=== PATIENT | female | born 1940 | race Caucasian/White ===

== ENCOUNTER → 2016-07-05 | Outpatient (CLI) | payer MEDICARE ==
[~2016-07-05] MED LIST: ANAS1TAB PO; ASCO500T12 PO; ASPI-496 PO; CALC500T47 PO; CHOL3000 PO; CYAN1TAB29 PO; LOSA50TA6 PO; MULT-257 PO; OMEG1CAP34 PO; RED600TA PO; UBID1CAP24 PO
== END | disposition home or self-care (01) ==
LOC: CFH 09:14
PROVIDERS: ATTEND Internal Medicine Hematology & Oncology
DX: Z13.820 Encounter for screening for osteoporosis (principal); C50.911 Malignant neoplasm of unspecified site of right female breast; M85.88 Other specified disorders of bone density and structure, other site
CPT/HCPCS: 77080

== ENCOUNTER → 2016-11-20 | Outpatient (CLI) | payer MEDICARE | END | disposition home or self-care (01) | LOC: PETCFH 07:13 | PROVIDERS: ATTEND Internal Medicine Hematology & Oncology | DX: C50.911 Malignant neoplasm of unspecified site of right female breast (principal) | CPT/HCPCS: 78306; A9503 ==

== ENCOUNTER → 2016-11-20 | Outpatient (CLI) | payer MEDICARE ==
[~2016-11-20] MED LIST changes: +OMNIPAQUE 350 MG/ML, 100ML BOTTLE ONE
== END | disposition home or self-care (01) ==
LOC: CFH 07:20
PROVIDERS: ATTEND Internal Medicine Hematology & Oncology
DX: C79.51 Secondary malignant neoplasm of bone (principal); C50.911 Malignant neoplasm of unspecified site of right female breast; K76.9 Liver disease, unspecified; K82.0 Obstruction of gallbladder; J98.4 Other disorders of lung
CPT/HCPCS: 71260; 74177; 82565; Q9967

== ENCOUNTER → 2017-03-24 | Outpatient (CLI) | payer MEDICARE ==
[~2017-03-24] MED LIST changes: -CALC500T47 PO; +CALC500T51 PO; -OMNIPAQUE 350 MG/ML, 100ML BOTTLE ONE; -UBID1CAP24 PO; +UBID1CAP43 PO
== END | disposition home or self-care (01) ==
LOC: PETCFH 10:28
PROVIDERS: ATTEND Internal Medicine Hematology & Oncology
DX: C78.7 Secondary malignant neoplasm of liver and intrahepatic bile duct (principal); C79.51 Secondary malignant neoplasm of bone; C50.911 Malignant neoplasm of unspecified site of right female breast; J90 Pleural effusion, not elsewhere classified; R91.8 Other nonspecific abnormal finding of lung field; I70.0 Atherosclerosis of aorta; K82.0 Obstruction of gallbladder
CPT/HCPCS: 71260; 74177; 78306; 82565; A9503; Q9967

== ENCOUNTER → 2017-03-26 | Outpatient (CLI) | payer MEDICARE | END | disposition home or self-care (01) | LOC: RAD 11:22 | PROVIDERS: ATTEND Internal Medicine Hematology & Oncology | DX: C50.911 Malignant neoplasm of unspecified site of right female breast (principal) | CPT/HCPCS: 93005 ==

== ENCOUNTER → 2017-06-10 | Outpatient (CLI) | payer MEDICARE | END | disposition home or self-care (01) | LOC: STAR 10:41 | PROVIDERS: ATTEND Internal Medicine Hematology & Oncology | DX: I44.4 Left anterior fascicular block (principal); I51.7 Cardiomegaly; C50.911 Malignant neoplasm of unspecified site of right female breast | CPT/HCPCS: 93005 ==

== ENCOUNTER → 2017-06-19 | Outpatient (CLI) | payer MEDICARE ==
[~2017-06-19] MED LIST changes: +OMNIPAQUE 350 MG/ML, 100ML BOTTLE ONE
== END | disposition home or self-care (01) ==
LOC: CFH 09:57
PROVIDERS: ATTEND Internal Medicine Hematology & Oncology
DX: C79.51 Secondary malignant neoplasm of bone (principal); C50.911 Malignant neoplasm of unspecified site of right female breast; J90 Pleural effusion, not elsewhere classified
CPT/HCPCS: 71260; 74177; 82565; Q9967

== ENCOUNTER → 2017-06-19 | Outpatient (CLI) | payer MEDICARE ==
[~2017-06-19] MED LIST changes: -OMNIPAQUE 350 MG/ML, 100ML BOTTLE ONE
== END | disposition home or self-care (01) ==
LOC: PETCFH 09:54
PROVIDERS: ATTEND Internal Medicine Hematology & Oncology
DX: C50.911 Malignant neoplasm of unspecified site of right female breast (principal)
CPT/HCPCS: 78306; A9503

== ENCOUNTER → 2017-08-07 | Outpatient (CLI) | payer MEDICARE | END | disposition home or self-care (01) | LOC: CLISVCS 12:26 | PROVIDERS: ATTEND Internal Medicine Hematology & Oncology | DX: I44.4 Left anterior fascicular block (principal); I45.10 Unspecified right bundle-branch block; I51.7 Cardiomegaly; C50.911 Malignant neoplasm of unspecified site of right female breast | CPT/HCPCS: 93005 ==

== ENCOUNTER → 2017-08-14 | Outpatient (CLI) | payer MEDICARE ==
[~2017-08-14] MED LIST changes: +GADOBUTROL 7.5 MMOL/7.5 ML VIAL ONE
== END | disposition home or self-care (01) ==
LOC: CFH 13:23
PROVIDERS: ATTEND Internal Medicine Hematology & Oncology
DX: G31.89 Other specified degenerative diseases of nervous system (principal); I67.82 Cerebral ischemia; R90.82 White matter disease, unspecified; C50.911 Malignant neoplasm of unspecified site of right female breast
CPT/HCPCS: 70553; A9585

== ENCOUNTER → 2017-09-17 | Outpatient (CLI) | payer MEDICARE ==
[~2017-09-17] MED LIST changes: -GADOBUTROL 7.5 MMOL/7.5 ML VIAL ONE; +OMNIPAQUE 350 MG/ML, 100ML BOTTLE ONE
== END | disposition home or self-care (01) ==
LOC: PETCFH 10:00
PROVIDERS: ATTEND Internal Medicine Hematology & Oncology
DX: C79.51 Secondary malignant neoplasm of bone (principal); J90 Pleural effusion, not elsewhere classified; C50.911 Malignant neoplasm of unspecified site of right female breast
CPT/HCPCS: 71260; 74177; 78306; 82565; A9503; Q9967

== ENCOUNTER → 2017-09-22 | Outpatient (CLI) | payer MEDICARE ==
[~2017-09-22] MED LIST changes: -OMNIPAQUE 350 MG/ML, 100ML BOTTLE ONE
== END | disposition home or self-care (01) ==
LOC: STAR 10:10
PROVIDERS: ATTEND Internal Medicine Hematology & Oncology
DX: I51.7 Cardiomegaly (principal); I45.10 Unspecified right bundle-branch block; C50.911 Malignant neoplasm of unspecified site of right female breast
CPT/HCPCS: 93005

== ENCOUNTER → 2017-11-21 | Outpatient (CLI) | payer MEDICARE ==
[~2017-11-21] MED LIST changes: +OMNIPAQUE 350 MG/ML, 100ML BOTTLE ONE
== END | disposition home or self-care (01) ==
LOC: RAD 08:48
PROVIDERS: ATTEND Internal Medicine Hematology & Oncology
DX: C79.51 Secondary malignant neoplasm of bone (principal); C50.911 Malignant neoplasm of unspecified site of right female breast; R91.8 Other nonspecific abnormal finding of lung field; J90 Pleural effusion, not elsewhere classified
CPT/HCPCS: 71260; 74177; 78306; A9503; Q9967

== ENCOUNTER → 2018-01-13 | Outpatient (CLI) | payer MEDICARE ==
[~2018-01-13] MED LIST changes: -LOSA50TA6 PO; +LOSA50TA7 PO; -OMNIPAQUE 350 MG/ML, 100ML BOTTLE ONE
== END | disposition home or self-care (01) ==
LOC: STAR 10:45
PROVIDERS: ATTEND Internal Medicine Hematology & Oncology
DX: Z01.818 Encounter for other preprocedural examination (principal); C50.911 Malignant neoplasm of unspecified site of right female breast; F17.210 Nicotine dependence, cigarettes, uncomplicated
CPT/HCPCS: 93005

== ENCOUNTER → 2018-01-28 | Outpatient (CLI) | payer MEDICARE ==
[~2018-01-28] MED LIST changes: +OMNIPAQUE 350 MG/ML, 100ML BOTTLE ONE
== END | disposition home or self-care (01) ==
LOC: RAD 10:52
PROVIDERS: ATTEND Internal Medicine Hematology & Oncology
DX: C79.51 Secondary malignant neoplasm of bone (principal); C78.7 Secondary malignant neoplasm of liver and intrahepatic bile duct; C50.911 Malignant neoplasm of unspecified site of right female breast; R91.8 Other nonspecific abnormal finding of lung field; J94.8 Other specified pleural conditions
CPT/HCPCS: 71260; 74177; Q9967

== ENCOUNTER → 2018-03-06 | Outpatient (CLI) | payer MEDICARE ==
[~2018-03-06] MED LIST changes: -OMNIPAQUE 350 MG/ML, 100ML BOTTLE ONE
== END | disposition home or self-care (01) ==
LOC: RAD 13:57
PROVIDERS: ATTEND Internal Medicine Hematology & Oncology
DX: I83.893 Varicose veins of bilateral lower extremities with other complications (principal)
CPT/HCPCS: 93970

== ENCOUNTER → 2018-04-23 | Outpatient (CLI) | payer MEDICARE ==
[~2018-04-23] MED LIST changes: +OMNIPAQUE 350 MG/ML, 100ML BOTTLE ONE
== END | disposition home or self-care (01) ==
LOC: RAD 08:00
PROVIDERS: ATTEND Internal Medicine Hematology & Oncology
DX: C78.7 Secondary malignant neoplasm of liver and intrahepatic bile duct (principal); C50.911 Malignant neoplasm of unspecified site of right female breast
CPT/HCPCS: 74177; Q9967

== ENCOUNTER → 2018-04-23 | Outpatient (CLI) | payer MEDICARE | END | disposition home or self-care (01) | LOC: RAD 13:29 | PROVIDERS: ATTEND Internal Medicine Hematology & Oncology | DX: C50.911 Malignant neoplasm of unspecified site of right female breast (principal); J90 Pleural effusion, not elsewhere classified; R06.02 Shortness of breath; R00.0 Tachycardia, unspecified | CPT/HCPCS: 71275; Q9967 ==

== ENCOUNTER 2018-06-09 08:19 | Day surgery (SDC) | payer MEDICARE ==
[~2018-06-09] VITALS: Ht 167.6 cm; Wt 49.0 kg
[~2018-06-09 08:19] MED LIST changes: +LOSA50TA14 PO; -LOSA50TA7 PO; -OMNIPAQUE 350 MG/ML, 100ML BOTTLE ONE
[2018-06-09] MEDS ORDERED: GEMZAR IV (08:58)
[2018-06-09] MEDS ORDERED: MULT-658 PO (08:58)
[2018-06-09] MEDS ORDERED: LACT1CAP43 PO (08:58)
[2018-06-09] MEDS ORDERED: CEFAZOLIN PMX 1GM/50ML 50 ML IV ONE (09:00)
[2018-06-09] MEDS ORDERED: [UNRECOGNIZED DRUG - OTHER] PO (09:00)
[2018-06-09] MEDS ORDERED: CHOL500051 PO (09:00)
[2018-06-09 09:01] VITALS: BP 134/79
[2018-06-09] MEDS ORDERED: LIDOCAINE 1%, 20ML ONE (10:24)
[2018-06-09] MEDS ORDERED: FENTANYL PF 100 MCG/2ML ONE (10:49)
[2018-06-09] MEDS ORDERED: MIDAZOLAM 1 MG/ML, 5ML ONE (10:49)
== END 2018-06-09 13:20 | disposition home or self-care (01) ==
LOC: OUT 08:19
PROVIDERS: ATTEND Internal Medicine Hematology & Oncology
DX: Z45.2 Encounter for adjustment and management of vascular access device (principal); C50.812 Malignant neoplasm of overlapping sites of left female breast; Z17.1 Estrogen receptor negative status [ER-]; Z98.890 Other specified postprocedural states; Z72.89 Other problems related to lifestyle; Z88.5 Allergy status to narcotic agent
CPT/HCPCS: 36563; 76937; 77001; 99156; 99157; C1788; J0690; J1642; J2250; J3010; J3490

== ENCOUNTER → 2018-07-27 | Outpatient (CLI) | payer MEDICARE ==
[~2018-07-27] MED LIST changes: +CHOL500051 PO; +GEMZAR IV; +LACT1CAP43 PO; +MULT-658 PO; +OMNIPAQUE 350 MG/ML, 100ML BOTTLE ONE; +[UNRECOGNIZED DRUG - OTHER] PO
== END | disposition home or self-care (01) ==
LOC: CFH 08:50
PROVIDERS: ATTEND Internal Medicine Hematology & Oncology
DX: C50.911 Malignant neoplasm of unspecified site of right female breast (principal); C79.51 Secondary malignant neoplasm of bone; J90 Pleural effusion, not elsewhere classified; J98.4 Other disorders of lung; J92.9 Pleural plaque without asbestos; M85.88 Other specified disorders of bone density and structure, other site; I70.8 Atherosclerosis of other arteries; K76.9 Liver disease, unspecified; R18.8 Other ascites; R91.8 Other nonspecific abnormal finding of lung field
CPT/HCPCS: 71260; 74177; 77080; 78306; A9503; J1642; Q9967

== ENCOUNTER 2018-09-28 06:06 | Inpatient (IN) | payer MEDICARE ==
[~2018-09-28] VITALS: Ht 167.6 cm; Wt 62.2 kg
[~2018-09-28 06:06] MED LIST changes: +GEMZAR; +OMEP-110 PO; -OMNIPAQUE 350 MG/ML, 100ML BOTTLE ONE; +SUCR1ORA5 PO
[2018-09-28] MEDS ORDERED: SODIUM CHLORIDE 0.9% 1,000ML IVBOLUS ONE (06:30)
[2018-09-28] MEDS ORDERED: SODIUM CHLORIDE FLUSH 10ML SYR IVF ONE (06:30)
[2018-09-28] MEDS ORDERED: METOCLOPRAMIDE 5 MG/ML, 2ML IVPush ONE ×2 (06:30→07:00)
--- NOTE | 2018-09-28 06:34 | NUR ---
BIB [facility] FOR C/O N/V SINCE FRIDAY. PT. HAS STAGE 4 BREAST CA AND WAS TOLD BY [facility] MD TO COME TO ED. DENIES DIARRHEA. LAST CHEMO WAS 09/03/18. PT. ALSO HAS BLE SWELLING 3+ PITTING. PT. DENIES CP. C/O SOB WITH AMBULATION AND ACTIVITY. PT. TO X-RAY VIA [employer]. WILL ACCESS PORT UPON RETURN.
[2018-09-28] MEDS ORDERED: METOCLOPRAMIDE 5 MG/ML, 2ML ONE (06:35)
--- NOTE | 2018-09-28 06:51 | NUR ---
RECEIVED BEDSIDE REPORT FROM ANDREA ALDRIDGE. PT NOW BACK TO ROOM FROM IMAGING.
[2018-09-28 07:36] LABS: BASOPHILS % (AUTO) 0 % (0-1); EOSINOPHILS % (AUTO) 0 % (1-7); LYMPHOCYTES # (AUTO) 0.28 x10^3/uL (1-3.4); LYMPHOCYTES % (AUTO) 4 % (22-44); MD NO; MEAN CORPUSCULAR HEMOGLOBIN 30.1 pg (27.0-34.8); MEAN CORPUSCULAR HGB CONC 31.9 g/dL (32.4-35.8); MEAN CORPUSCULAR VOLUME 94.4 fL (80-100); MEAN PLATELET VOLUME 6.3 fL (7.4-10.4); MONOCYTES # (AUTO) 0.48 x10^3/uL (0.2-0.8); MONOCYTES % (AUTO) 6 % (2-9); NEUTROPHILS % (AUTO) 90 % (42-75); PLATELET COUNT 359 x10^3/uL (130-400); RED BLOOD COUNT 3.76 x10^6/uL (3.82-5.3); RED CELL DISTRIBUTION WIDTH 15.3 % (9.6-15.2)
--- NOTE | 2018-09-28 07:38 | NUR ---
PT RESTING ON GURNEY. NO ACUTE DISTRESS NOTED. PT GIVEN WARM BLANKETS. FRIEND BEDSIDE. NO NEEDS REQUESTED AT THIS TIME.
[2018-09-28 07:49] LABS: ALANINE AMINOTRANSFERASE 18 U/L (12-78); ALBUMIN 2.6 g/dL (3.4-5.0); ANION GAP 15 mmol/L (5-15); CALCIUM 8.2 mg/dL (8.5-10.1); CHLORIDE 98 mmol/L (98-107); CREATININE 1.49 mg/dL (0.55-1.02)
[2018-09-28 07:53] LABS: ALKALINE PHOSPHATASE 128 U/L (45-117); BILIRUBIN,TOTAL 0.5 mg/dL (0.2-1.0); TOTAL PROTEIN 6.4 g/dL (6.4-8.2); TROPONIN I < 0.015 ng/mL (0.000-0.045)
[2018-09-28] MEDS ORDERED: ONDA4TAB7 PO (08:07)
--- NOTE | 2018-09-28 08:08 | NUR ---
PT RESTING ON GURNEY. NO ACUTE DISTRESS NOTED. EDMD BEDSIDE. FRIEND BEDSIDE. NO NEEDS REQUESTED AT THIS TIME.
--- NOTE | 2018-09-28 08:58 | NUR ---
BEDSIDE REPORT TO ANDREA MCFARLAND. PT AWARE OF UA NEEDED. NO NEEDS REQUESTED AT THIS TIME.
--- NOTE | 2018-09-28 09:00 | NUR ---
Bedside report from Sade cook Patient resting on gurnery-vitals stable on monitor Reports nausea improved/denies discomfort ivf complete plan to transfer to bedside commode for urine shortly updated on estimated poc call pop in hand/side rails up friend at bedside
[2018-09-28] MEDS ORDERED: FUROSEMIDE 20 MG/2 ML IV ONE (09:30)
--- NOTE | 2018-09-28 10:03 | NUR ---
UP TO COMMODE TO VOID-ONLY ABLE TO PRODUCE A FEW DROP- CLARIFIED NEED FOR CATH W/ PROVIDER. TO WAIT FOR VOID HR TO 125 WITH STANDING (ORTHO)- RECOVERED TO 70 W/IN MOMENTS W/ REST PROVIDED W/ WATER AFTER CLARIFICATION W/ PROVIDER
[2018-09-28] MEDS ORDERED: FUROSEMIDE 20 MG/2 ML ONE (10:19)
--- NOTE | 2018-09-28 10:32 | NUR ---
[facility]ION[facility] HELD PATIENT ON THE EDGE "OF NEEDING TO PEE." INPATIENT RN MADE AWARE. [facility] 3RD YEAR AT BEDSIDE
[2018-09-28] MEDS ORDERED: DOCUSATE 100 MG CAPSULE PO PRN (11:00)
[2018-09-28] MEDS ORDERED: ACETAMINOPHEN 325 MG TABLET PO PRN (11:00)
[2018-09-28] MEDS ORDERED: METOCLOPRAMIDE 5 MG/ML, 2ML IVPush PRN (11:00)
[2018-09-28] MEDS ORDERED: ONDANSETRON 2MG/ML, 2ML IVPush PRN (11:00)
[2018-09-28] MEDS ORDERED: LABETALOL 5 MG/ML SYRINGE IVPush PRN (11:00)
[2018-09-28] MEDS ORDERED: POLYETHYLENE GLYCOL 17 GM PACKET PO PRN (11:00)
[2018-09-28 11:05] VITALS: BP 116/66
[2018-09-28] MEDS: SUCRALFATE 1 GM/10 ML UDC PO SCH ×2 (11:33→16:48)
[2018-09-28] MEDS ORDERED: ONDANSETRON ODT 4 MG PO SCH (13:00)
[2018-09-28] MEDS ORDERED: ONDANSETRON ODT 4 MG PO PRN (13:00)
[2018-09-28] MEDS ORDERED: FUROSEMIDE 40 MG/4 ML IV ONE (13:00)
[2018-09-28 14:02] LABS: CULTURE INDICATED? YES; MICROSCOPIC INDICATED
[2018-09-28] MEDS ORDERED: OMNIPAQUE 350 MG/ML, 100ML BOTTLE ONE (17:41)
[2018-09-28] MEDS: HEPARIN 5,000 UNITS/ML, 1ML SQ SCH (17:52)
[2018-09-28] MEDS: METOCLOPRAMIDE 5 MG/ML, 2ML IVPush SCH (17:52)
[2018-09-28 19:01] VITALS: BP 110/70
[2018-09-29] MEDS: SUCRALFATE 1 GM/10 ML UDC PO SCH ×5 (00:25→22:09)
[2018-09-29] MEDS: METOCLOPRAMIDE 5 MG/ML, 2ML IVPush SCH ×4 (00:25→18:01)
[2018-09-29 01:55] VITALS: BP 137/72
[2018-09-29] MEDS: HEPARIN 5,000 UNITS/ML, 1ML SQ SCH ×3 (03:18→20:58)
[2018-09-29 06:41] LABS: BASOPHILS # (AUTO) 0.01 x10^3/uL (0-0.1); BASOPHILS % (AUTO) 0 % (0-1); EOSINOPHILS % (AUTO) 0 % (1-7); LYMPHOCYTES # (AUTO) 0.23 x10^3/uL (1-3.4); LYMPHOCYTES % (AUTO) 2 % (22-44); MD NO; MEAN CORPUSCULAR HGB CONC 31.5 g/dL (32.4-35.8); MEAN CORPUSCULAR VOLUME 95.1 fL (80-100); MEAN PLATELET VOLUME 6.2 fL (7.4-10.4); MONOCYTES # (AUTO) 0.89 x10^3/uL (0.2-0.8); MONOCYTES % (AUTO) 9 % (2-9); NEUTROPHILS # (AUTO) 8.91 x10^3/uL (1.8-6.8); NEUTROPHILS % (AUTO) 89 % (42-75); PLATELET COUNT 333 x10^3/uL (130-400); RED BLOOD COUNT 3.34 x10^6/uL (3.82-5.3); RED CELL DISTRIBUTION WIDTH 15.5 % (9.6-15.2)
[2018-09-29 06:51] LABS: ANION GAP 12 mmol/L (5-15); CALCIUM 7.5 mg/dL (8.5-10.1); CHLORIDE 98 mmol/L (98-107); CREATININE 1.61 mg/dL (0.55-1.02)
[2018-09-29 07:43] VITALS: BP 118/69
[2018-09-29] MEDS ORDERED: ONDANSETRON 2MG/ML, 2ML IVPush ONE (08:30)
[2018-09-29] MEDS: OMEPRAZOLE 20 MG CAPSULE.DR PO SCH (12:38)
[2018-09-29] MEDS ORDERED: PROMETHAZINE 25 MG/ML, 1ML IM PRN (14:30)
[2018-09-29] MEDS ORDERED: SODIUM CHLORIDE 0.9% 1,000 ML IV SCH (14:30)
[2018-09-29] MEDS: FUROSEMIDE 40 MG/4 ML IV SCH (16:24)
[2018-09-29] MEDS: ONDANSETRON 2MG/ML, 2ML IVPush SCH (16:24)
[2018-09-29] MEDS: D5%-LACTATED RINGERS 1,000 ML IV SCH (17:57)
[2018-09-29 20:57] VITALS: BP 116/68
[2018-09-30] MEDS: METOCLOPRAMIDE 5 MG/ML, 2ML IVPush SCH ×4 (00:20→17:15)
[2018-09-30] MEDS: ONDANSETRON 2MG/ML, 2ML IVPush SCH ×5 (00:20→21:23)
[2018-09-30 01:35] VITALS: BP 102/54
[2018-09-30 04:40] LABS: ALANINE AMINOTRANSFERASE 13 U/L (12-78); ALBUMIN 2.2 g/dL (3.4-5.0); ANION GAP 11 mmol/L (5-15); CALCIUM 7.4 mg/dL (8.5-10.1); CHLORIDE 98 mmol/L (98-107)
[2018-09-30 04:42] LABS: ALKALINE PHOSPHATASE 111 U/L (45-117); BILIRUBIN,TOTAL 0.4 mg/dL (0.2-1.0); TOTAL PROTEIN 5.2 g/dL (6.4-8.2)
[2018-09-30] MEDS: HEPARIN 5,000 UNITS/ML, 1ML SQ SCH ×3 (04:56→21:23)
[2018-09-30] MEDS ORDERED: POTASSIUM CHLORIDE 40 MEQ in SODIUM CHLORIDE 0.9% 500 ML IV ONE (06:30)
[2018-09-30 06:40] VITALS: BP 126/63
[2018-09-30] MEDS: D5%-LACTATED RINGERS 1,000 ML IV SCH (06:56)
[2018-09-30] MEDS: OMEPRAZOLE 20 MG CAPSULE.DR PO SCH (06:56)
[2018-09-30] MEDS: SUCRALFATE 1 GM/10 ML UDC PO SCH ×4 (06:56→21:23)
[2018-09-30] MEDS: FUROSEMIDE 40 MG/4 ML IV SCH ×2 (07:51→17:15)
[2018-09-30 13:44] VITALS: BP 103/67
[2018-09-30 20:48] VITALS: BP 116/68
[2018-10-01] MEDS: METOCLOPRAMIDE 5 MG/ML, 2ML IVPush SCH ×4 (00:46→16:51)
[2018-10-01 01:05] VITALS: BP 105/71
[2018-10-01] MEDS ORDERED: MORPHINE SULFATE 4 MG/ML, 1ML IVPush ONE (01:30)
[2018-10-01] MEDS ORDERED: HYDROmorphone 1 MG/ML, 1ML INJ IV PRN (02:00)
[2018-10-01] MEDS ORDERED: MORPHINE SULFATE 4 MG/ML, 1ML IVPush PRN (02:00)
[2018-10-01] MEDS: ONDANSETRON 2MG/ML, 2ML IVPush SCH ×3 (05:09→16:51)
[2018-10-01] MEDS: HEPARIN 5,000 UNITS/ML, 1ML SQ SCH ×2 (05:09→12:19)
[2018-10-01] MEDS: OMEPRAZOLE 20 MG CAPSULE.DR PO SCH (05:09)
[2018-10-01] MEDS ORDERED: METO5VIA30 PO (05:45)
[2018-10-01 06:56] VITALS: BP 123/81
[2018-10-01] MEDS: SUCRALFATE 1 GM/10 ML UDC PO SCH ×3 (07:19→16:00)
[2018-10-01] MEDS: FUROSEMIDE 40 MG/4 ML IV SCH ×2 (07:19→16:51)
== END 2018-10-01 17:26 | disposition hospice, home (50) | DRG 380 ==
LOC: ED 08:40 → EDIP 09:20 → 3NW 11:02
PROVIDERS: ADMIT Family Medicine; ATTEND Family Medicine
DX: K31.1 Adult hypertrophic pyloric stenosis (principal); E43 Unspecified severe protein-calorie malnutrition; E87.1 Hypo-osmolality and hyponatremia; Z68.1 Body mass index [BMI] 19.9 or less, adult; R18.0 Malignant ascites; E87.6 Hypokalemia; I25.10 Atherosclerotic heart disease of native coronary artery without angina pectoris; K21.0 Gastro-esophageal reflux disease with esophagitis; K44.9 Diaphragmatic hernia without obstruction or gangrene; K59.00 Constipation, unspecified; N18.9 Chronic kidney disease, unspecified; Z51.5 Encounter for palliative care; Z66 Do not resuscitate; Z85.3 Personal history of malignant neoplasm of breast; Z92.21 Personal history of antineoplastic chemotherapy; Z88.5 Allergy status to narcotic agent
CPT/HCPCS: 36415; 70450; 74018; 74022; 74177; 74245; 80048; 80053; 81001; 83605; 83880; 84484; 85025; 87086; 93005; 93306; 96361; 96374; G0378; J1644; J1940; J2405; J3480; Q0162; Q9967; J2270; J2765; J7030; J7040; J7121